=== PATIENT | male | born 1950 | race Caucasian/White ===

== ENCOUNTER 2019-01-09 00:47 | Inpatient (IN) | payer MEDICARE ==
[~2019-01-09] VITALS: Ht 167.6 cm; Wt 111.7 kg
[2019-01-09] MEDS ORDERED: METO100ER PO (01:10)
[2019-01-09] MEDS ORDERED: ZESTORETIC 20-251 EA PO (01:10)
[2019-01-09] MEDS ORDERED: AMLO10 PO (01:10)
[2019-01-09] MEDS ORDERED: Coq-1030 MG PO (01:12)
[2019-01-09 01:35] LABS: BASOPHILS ABSOLUTE AUTO 0.05 K/mm3 (0.00-0.23); BASOPHILS PERCENT AUTO 0 % (0-2); EOSINOPHILS ABSOLUTE AUTO 0.03 K/mm3 (0.00-0.68); EOSINOPHILS PERCENT AUTO 0 % (0-6); Hematocrit 43.6 % (37.0-53.0); Hemoglobin 14.3 g/dL (13.5-17.5); IMMATURE GRAN ABSOLUTE AUTO 0.05 K/mm3 (0.00-0.10); IMMATURE GRAN PERCENT AUTO 0 % (0-1); LYMPHOCYTES ABSOLUTE AUTO 2.77 K/mm3 (0.84-5.20); LYMPHOCYTES PERCENT AUTO 22 % (21-46); MONOCYTES ABSOLUTE AUTO 1.32 K/mm3 (0.16-1.47); MONOCYTES PERCENT AUTO 10 % (4-13); Mean Corpuscular HGB 28.9 pg (26.0-34.0); Mean Corpuscular HGB Conc 32.8 g/dL (31.5-36.5); Mean Corpuscular Volume 88 fL (80-100); NEUTROPHILS ABSOLUTE AUTO 8.44 K/mm3 (1.96-9.15); NEUTROPHILS PERCENT AUTO 67 % (41-73); Platelet Count 216 K/mm3 (150-400); RDW Coefficient Variation 13.9 % (11.7-14.2); RDW Standard Deviation 44.5 fL (35.1-46.3); Red Blood Cell Count 4.94 M/mm3 (4.30-5.90); White Blood Cell Count 12.66 K/mm3 (4.00-11.30)
[2019-01-09 01:55] LABS: Alanine Aminotransfer (ALT/SGP 18 U/L (12-78); Albumin, Blood 3.7 g/dL (3.4-5.0); Alk Phos 58 U/L (50-136); Anion Gap 7 mmol/L (6-16); Aspartate Aminotrans (AST/SGOT 13 U/L (12-37); Blood Urea Nitrogen 21 mg/dL (8-24); Bun/Creatinine Ratio 17.2 (12.0-20.0); CO2, Blood 27 mmol/L (21-32); Calcium, Blood 8.7 mg/dL (8.5-10.1); Chloride, Blood 107 mmol/L (98-108); Creatinine, Blood 1.22 mg/dL (0.60-1.20); Globulin, Blood 3.6 g/dL (2.2-4.0); Glomerular Filtration Rate >60 (60-); Glucose, Blood 142 mg/dL (70-99); Potassium, Blood 3.7 mmol/L (3.5-5.5); Sodium, Blood 141 mmol/L (136-145); Total Protein, Blood 7.3 g/dL (6.4-8.2); Troponin I <0.015 ng/mL (0.000-0.040)
[2019-01-09 02:19] LABS: International Normalized Ratio 0.99; Prothrombin Time Results 10.5 Sec (9.7-11.5)
[2019-01-09 06:08] LABS: CHOL/HDL RATIO 4.8; Cholesterol 216 mg/dL (50-200); HDL Cholesterol 45 mg/dL (>39); LDL/HDL RATIO 3.5; Low Density Lipoprotein Chol 159 mg/dL (0-110); Triglycerides 58 mg/dL (30-160); Very Low Density Lipoprot Chol 11 mg/dL (6-32)
[2019-01-09] MEDS ORDERED: ASPI325 PO (14:27)
[2019-01-09] MEDS ORDERED: FURO20 PO (14:31)
--- NOTE | 2019-01-09 18:40 | NUR ---
ASSUMED CARE OF PT @1600. PT ADMITTED FOR ACS. PT TRANSPORTED TO ROOM VIA GUERNEY BY VAHID HERRING FROM ED. VS STABLE, NSR PER TELE. PT COMPLAINING ABOUT PRESSURE IN CHEST, DENIES RADIATING PAIN OR PAIN ANYWHERE ELSE IN BODY. PT ALERT AND ORIENTED, VERY COOPERATIVE. LUNGS CLEAR TO AUSCULTATION, PT DENIES ISSUES WITH GI//SKIN. PT STATES BEING HOSPITALIZED ONCE IN EARLY 1999' DUE TO AN ARRYTHMIA BUT DENIES ANY OTHER CARDIAC RELATED ISSUE SINCE THEN. PT HAS HEPARIN DRIP RUNNING, STARTESD IN ED. PT HAS BEEN SEEN BY CARDIAC DR IN ED. PATIENT WILL BE NPO AT MIDNIGHT DUE TO POSSIBLE CATHETERIZATION TOMORROW IN AM.
--- NOTE | 2019-01-09 18:47 | NUR ---
END OF SHIFT SUMMARY NO ACUTE CHANGES FROM ASSUMPTION OF CARE. PT CONTINUES TO HAVE HEPARIN DRIP. PT'S FAMILY IN ROOM THROUGHOUT TIME ON FLOOR. VERY COOPERATIVE PT AND FAMILY. PT ATE ALL OF DINNER, TOLD THAT HE WOULD NOT BE ALLOWED TO EAT PAST MIDNIGHT DUE TO POSSIBLE CATHETERIZATION. CHEST PRESSURE STILL PRESENT BUT PT STATES PRESSURE BEING MORE DULL. VS CONTINUE TO BE STABLE.
--- NOTE | 2019-01-09 19:45 | NUR ---
ASSUMED CARE PT RESTING IN ROOM COMFORTABLY. PER DAY SHIFT PT HAS HAD NO ACUTE CHANGES DURING SAY SHIFT. PT HAD SOME CP EARLY IN THE AFTERNOON AFTER ARRIVAL BUT HAS NOT NEEDED ANY FURTHER MEDICATING. PT IS TO BE NPO AFTER MIDNIGHT FOR A POSSIBLE ANGIO IN THE AM. HEPARIN GTT INFUSING IN PT RAC. SEE EMAR. RESP EVEN UNLABORED ON 1L NC. SATS >94%. CALL LIGHT IN REACH. PT DENIES OTHER NEEDS AT THIS TIME.
[2019-01-10 04:14] LABS: BASOPHILS ABSOLUTE AUTO 0.03 K/mm3 (0.00-0.23); BASOPHILS PERCENT AUTO 0 % (0-2); EOSINOPHILS ABSOLUTE AUTO 0.02 K/mm3 (0.00-0.68); EOSINOPHILS PERCENT AUTO 0 % (0-6); Hematocrit 41.3 % (37.0-53.0); Hemoglobin 13.2 g/dL (13.5-17.5); IMMATURE GRAN ABSOLUTE AUTO 0.06 K/mm3 (0.00-0.10); IMMATURE GRAN PERCENT AUTO 1 % (0-1); LYMPHOCYTES ABSOLUTE AUTO 2.38 K/mm3 (0.84-5.20); LYMPHOCYTES PERCENT AUTO 18 % (21-46); MONOCYTES PERCENT AUTO 8 % (4-13); Mean Corpuscular HGB 28.7 pg (26.0-34.0); Mean Corpuscular Volume 90 fL (80-100); Mean Platelet Volume 11.3 fL (9.1-12.4); NEUTROPHILS ABSOLUTE AUTO 9.58 K/mm3 (1.96-9.15); NEUTROPHILS PERCENT AUTO 73 % (41-73); Platelet Count 198 K/mm3 (150-400); RDW Coefficient Variation 13.8 % (11.7-14.2); White Blood Cell Count 13.17 K/mm3 (4.00-11.30)
[2019-01-10 04:34] LABS: Alanine Aminotransfer (ALT/SGP 15 U/L (12-78); Albumin, Blood 3.3 g/dL (3.4-5.0); Albumin/Globulin Ratio 0.9 (0.8-1.8); Alk Phos 52 U/L (50-136); Anion Gap 8 mmol/L (6-16); Aspartate Aminotrans (AST/SGOT 12 U/L (12-37); Blood Urea Nitrogen 22 mg/dL (8-24); Bun/Creatinine Ratio 24.7 (12.0-20.0); CO2, Blood 27 mmol/L (21-32); Calcium, Blood 8.3 mg/dL (8.5-10.1); Chloride, Blood 106 mmol/L (98-108); Creatinine, Blood 0.89 mg/dL (0.60-1.20); Globulin, Blood 3.7 g/dL (2.2-4.0); Glomerular Filtration Rate >60 (60-); Glucose, Blood 132 mg/dL (70-99); Magnesium, Blood 2.3 mg/dL (1.6-2.4); Phosphorus, Blood 3.5 mg/dL (2.5-4.9); Potassium, Blood 3.7 mmol/L (3.5-5.5); Sodium, Blood 141 mmol/L (136-145)
--- NOTE | 2019-01-10 06:23 | NUR ---
SHIFT SUMMARY PT SLEEPING IN ROOM COMFORTABLY. PT HAD N ACUTE CHANGES THROUGHOUT SHIFT. PT DENIED CP ALL NIGHT. REPORTED SOME NEAUSEA AND HEADACHE. PT WAS MEDICATED FOR CONNORS AND PROVIDER WAS CALLED FOR NAUSEA MEDICATION. PT REPORTED FEELING MUCH BETTER AFTER DOSE OF ZOFRAN. SLEPT COMFORTABLY AFTER THAT. CALL LIGHT IN REACH, PT CALLS APPROPRIATELY.
--- NOTE | 2019-01-10 07:49 | NUR ---
NURSING PCU DAYSHIFT: Assumed care of pt at approx 0700. A/O, pleasant, cooperative w/care. Denies any pain/discomfort. Skin is intact w/no noted breakdown. Chronic tremors noted. Tele in place, NSR, no c/o CP/pressure, SBP 150's, trace BLE edema. L/S cta t/o, O2 sat low 90's on RA, c/o occ dry/[employer] cough. Abd SNT, BT+, voiding w/o difficulty per pt. PIV x2, hep gtt infusing at 17u/kg/hr as per pharmacy dosing. No s/s of acute distress. Plan for possible angiogram today, NPO at this time. Pt denies any current needs or questions regarding plan of care. Awaiting rounding from PMD and clinical science liaison, call light in reach, cont to monitor for changes.
--- NOTE | 2019-01-10 16:30 | NUR ---
NURSING PCU DAYSHIFT SUMMARY: Pt notified this RN @ approx 1500 that he had been experiencing chest pressure since 1200. [employer] Warm [employer] notified, new d/o received for SL nitro. Nitro administered as ordered, 2/10 chest pressure was relieved after one dose. VS remained stable t/o the shift. Seen by transportation superintendent and PMD, new d/o received and reviewed. Resting portion of stress test completed though Lexiscan had to be scheduled for next day d/t nitro patch being in place from ER. Plan of care discussed w/pt and family, verbalized understanding, all questions addressed. Pt denies any current needs at this time, call light in reach, cont to monitor until rpt is given to NOC RN.
--- NOTE | 2019-01-10 19:50 | NUR ---
ASSUMED CARE PT RESTING IN ROOM COMFORTABLY. PER DAY SHIFT NO ACUTE CHANGES IN STATUS. PT HAD FIRST PORTION OF CARDIAC STRESS TEST TODAY. SECOND PORTION TO BE DONE IN AM. PT TO BE NPO AFTER 0400. PT HAD COME CP EARLY IN THE DAY. DENIES ANY MORE PAIN AT THIS TIME. DENIES SOB. HEPARIN GTT INFUSING IN PIV. CALL LIGHT IN REACH.
[2019-01-11 05:27] LABS: Mean Platelet Volume 11.6 fL (9.1-12.4); Platelet Count 202 K/mm3 (150-400)
--- NOTE | 2019-01-11 05:50 | NUR ---
SHIFT SUMMARY PT SLEEPING IN ROOM COMFORTABLY. NO ACUTE CHANGES IN STATUS OVERNIGHT. PT HAD NO COMPLAINTS OF CP OR SOB T/O NIGHT. HEPARIN GTT INFUSING IN PIV. DENIES ANY OTHER NEEDS. CALL LIGHT IN REACH.
--- NOTE | 2019-01-11 07:32 | NUR ---
NURSING PCU DAYSHIFT: Assumed care of pt at approx 0700. A/O, pleasant, cooperative w/care. Denies any pain/discomfort at this time. Chronic UE tremors noted, ambulates independently and w/o difficulty. Skin is intact w/no breakdown noted. Tele in place, NSR, no c/o CP/pressure, hypertensive prior to a.m. meds, trace BLE edema. L/S cta t/o, O2 sat mid 90's on RA, denies dyspnea, occ cough producing clear/stringy sputum. Abd SNT, BT+, voiding w/o difficulty. PIV x2, hep gtt infusing as per pharmacy dosing. Pt denies any current needs or questions regarding plan of care. HC currently at bedside for 2nd portion of stress test. Call light in reach and pt is able to use w/o difficulty. Awaiting rounding from PMD and strategic business development, cont to monitor for any changes.
--- NOTE | 2019-01-11 16:48 | NUR ---
NURSING PCU DAYSHIFT SUMMARY: Blood pressure has improved t/o the shift and maintained 120's through the afternoon. Seen by PMD and business analyst sales operations, new d/o received. Cardiac angiogram explained to pt by business analyst sales operations, consent form signed and placed on from of chart for possible cath 01/12. Pt to be NPO after 2400. Family at bedside this afternoon, plan of care discussed and questions answered. Pt denies any questions/needs. Hep gtt continues to infuse as per pharmacy dosing. Call light in reach, cont to monitor until rpt is given to NOC RN.
--- NOTE | 2019-01-11 17:25 | NUR ---
Pt gave student permission to provide care. NARINDER
[2019-01-12 04:11] LABS: BASOPHILS ABSOLUTE AUTO 0.05 K/mm3 (0.00-0.23); BASOPHILS PERCENT AUTO 1 % (0-2); EOSINOPHILS ABSOLUTE AUTO 0.16 K/mm3 (0.00-0.68); EOSINOPHILS PERCENT AUTO 2 % (0-6); Hematocrit 40.3 % (37.0-53.0); Hemoglobin 13.2 g/dL (13.5-17.5); IMMATURE GRAN ABSOLUTE AUTO 0.03 K/mm3 (0.00-0.10); IMMATURE GRAN PERCENT AUTO 0 % (0-1); LYMPHOCYTES ABSOLUTE AUTO 3.14 K/mm3 (0.84-5.20); LYMPHOCYTES PERCENT AUTO 34 % (21-46); MONOCYTES ABSOLUTE AUTO 1.06 K/mm3 (0.16-1.47); MONOCYTES PERCENT AUTO 12 % (4-13); Mean Corpuscular HGB 28.6 pg (26.0-34.0); Mean Corpuscular HGB Conc 32.8 g/dL (31.5-36.5); Mean Corpuscular Volume 87 fL (80-100); Mean Platelet Volume 11.4 fL (9.1-12.4); NEUTROPHILS ABSOLUTE AUTO 4.79 K/mm3 (1.96-9.15); NEUTROPHILS PERCENT AUTO 52 % (41-73); Platelet Count 198 K/mm3 (150-400); RDW Coefficient Variation 13.5 % (11.7-14.2); Red Blood Cell Count 4.61 M/mm3 (4.30-5.90); White Blood Cell Count 9.23 K/mm3 (4.00-11.30)
[2019-01-12 04:28] LABS: Anion Gap 7 mmol/L (6-16); Blood Urea Nitrogen 17 mg/dL (8-24); Bun/Creatinine Ratio 17.7 (12.0-20.0); CO2, Blood 27 mmol/L (21-32); Calcium, Blood 8.4 mg/dL (8.5-10.1); Chloride, Blood 108 mmol/L (98-108); Creatinine, Blood 0.96 mg/dL (0.60-1.20); Glomerular Filtration Rate >60 (60-); Glucose, Blood 101 mg/dL (70-99); Potassium, Blood 3.6 mmol/L (3.5-5.5); Sodium, Blood 142 mmol/L (136-145)
--- NOTE | 2019-01-12 05:08 | NUR ---
SHIFT SUMMARY- PT HAS REMAINED AOX4 THROUGHOUT SHIFT. VSS. PLEASANT AND COOPERATIVE WITH CARE. PT CONTINUES TO AMBULATE INDEPENDENTLY IN THE ROOM WITHOUT DIFFICULTY. PT HAS DENIED CHEST PAIN THROUGHOUT SHIFT. ALSO DENIED DYSPNEA OR NAUSEA. HEPARIN DRIP TITRATED PER LABS AND PHARMACY. PT HAS REMAINED NPO SINCE MIDNIGHT FOR UPCOMING ANGIO THIS AM. NO OTHER CHANGES FROM INITIAL ASSESSMENT. WILL CONTINUE TO MONITOR AND REPORT TO ONCOMING SHIFT RN. BED IN LOW POSITION, CALL LIGHT IN REACH.
--- NOTE | 2019-01-12 12:02 | NUR ---
Spiritual care/Advance Directive education visit conducted. Patient was lying in bed and alert when I entered the room. I introduced myself and patient welcomed me to stay. Patient explained about his upcoming procedure and and about his anxiety connected to it. I listened empathically, normalized his experience and provided prayer. Patient responded well to all interventions and showed signs of reduced stress. I also discussed with patient the importance and process of the advance directive. Patient asked questions and demonstrated an understanding of of the material. Patient said that he would take it home and go over it with his .
--- NOTE | 2019-01-12 12:34 | NUR ---
PT UP IN CHAIR. PT DENIES CHEST PAIN THIS MORNING. PT STATES MILD ANXIETY ABOUT ANGIOGRAM. DISCUSSED CONCERNS WITH PATIENT.
--- NOTE | 2019-01-12 14:07 | NUR ---
Permission to access Patient gave this student nurse permission to access chart.
--- NOTE | 2019-01-12 16:00 | NUR ---
the pt was taken to the [facility] for angiogram.
--- NOTE | 2019-01-12 19:00 | NUR ---
ASSUMED CARE PT CARE ASSUMED AT APPROXIMATELY 1900. PT RESTING COMFORTABLY AT THIS TIME WITH VISITORS AT BEDSIDE.VSS. R RADIAL PINPOINT INCISION NOTED WITH TR BAND CURRENTLY INFLATED WITH 12 ML OF AIR AND ARM BOARD IN PLACE. NO BRUISING, SWELLING OR HEMATOMA NOTED TO SITE. SMALL AMOUNT OF DRY, RED DRAINAGE NOTED UNDER TR BAND. PT DENIES TENDERNESS TO RADIAL SITE. PT DENIES CHEST PAIN OR SHORTNESS OF BREATH AT THIS TIME. WILL CONTINUE MONITORING.
--- NOTE | 2019-01-12 19:25 | NUR ---
Received the patient from the heart center this evening, and TR band was in place on the right wrist. Site has remained without bleeding, bruising, swelling, or evidence of hematoma. The pt has denied any numbness, tingling or pain in the right arm or right hand. Blood pressure was elevated during the initial recovery time, but has come down at the time of shift change and bedside report given to Malaika Zuleta RN. The pt has denied any pain or discomfort at all today. His family is at the bedside and he expressed no needs at this time.
--- NOTE | 2019-01-12 20:00 | NUR ---
tr site 2 cc air removed from tr band. No bleeding from site. no bruising, hematoma, or swelling noted. Pt denies pain on palpation. circulation wnl. will continue to monitor for changes.
--- NOTE | 2019-01-13 01:00 | NUR ---
tr band removal tr band fully deflated for one hour and removed from wrist at this time. clear dressing placed. no bruising, hematom, swelling or bleeding noted from or around site. pt denies pain on palpation. circulation in tact and wnl. arm board replaced and pt educated on restrictions of wrist- demonstrated understanding. will continue to monitor. bed in low position, call light in reach.
--- NOTE | 2019-01-13 05:17 | NUR ---
SHIFT SUMMARY- PT HAS REMAINED AOX4 THROUGHOUT SHIFT. VSS. PLEASANT AND COOPERATIVE WITH CARE. PT CONTINUES TO AMBULATE INDEPENDENTLY TO RESTROOM WITHOUT DIFFICULTY. PT DENIES CHEST PAIN OR DYSPNEA ON EXERTION THROUGHOUT THE NIGHT. R RADIAL SITE REMAINS UNCHANGED AND WITHIN NORMAL LIMITS. PT DENIES PAIN ON PALPATION, CIRCULATION IN TACT. ARM BOARD REMAINS IN PLACE AND PT PROVIDED EDUCATION ON MINIMIZATION OF R WRIST USAGE. NO OTHER CHANGES NOTED THROUGHOUT THE NIGHT. WILL CONTINUE TO MONITOR AND REPORT TO ONCOMING SHIFT RN. BED IN LOW POSITION, CALL LIGHT IN REACH.
[2019-01-13 05:35] LABS: Mean Platelet Volume 11.5 fL (9.1-12.4); Platelet Count 193 K/mm3 (150-400)
--- NOTE | 2019-01-13 08:00 | NUR ---
pt laying in bed awake a/ox3, pleasant and cooperative with care, follows commands well, denies pain, lungs are clear t/o, resp even and unlabored, no cough noted, hrr, tele in place running sr per monitor, see strip, no edema noted, ppp+2, cap refill <3sec, vs stable, afebrile, iv site is clear and patent, btx4, abd flat soft nontender, voids without diff, skin c/w/d, maew, caesar, up ad otilia in room gait noted to be steady, denies any pain, had a good night, call light in reach.
[2019-01-13] MEDS ORDERED: ATOR40TA PO (12:34)
[2019-01-13] MEDS ORDERED: CARV25 PO (12:35)
[2019-01-13] MEDS ORDERED: CLOP75 PO (12:36)
[2019-01-13] MEDS ORDERED: Isosorbide Mono30 MG PO (12:38)
--- NOTE | 2019-01-13 13:05 | NUR ---
pt has been discharged to home, went over instructions with him, he verbalized understanding. iv x2 removed intact. preprinted tr band instructions given and went over with pt. new meds faxed to [facility], called to verify they recieved it, they did. pt has all of his belongings, will leave as soon as ride arrives. call light in reach.
--- NOTE | 2019-01-13 13:15 | NUR ---
pt left via wheelchair with escort in attendence, has all his belongings, here to transport him home.
== END 2019-01-13 13:21 | disposition home or self-care (01) | DRG 287 ==
LOC: ER 00:47 → ERHOLD 05:11 → PCU 05:11
PROVIDERS: Emergency Medicine; Hospitalist; ADMIT Hospitalist
PROC: B2111ZZ Fluoroscopy of Multiple Coronary Arteries using Low Osmolar Contrast (ICD-10-PCS; principal; 2019-01-12)
PROC: 4A033BC Measurement of Arterial Pressure, Coronary, Percutaneous Approach (ICD-10-PCS; 2019-01-12)
DX: I20.0 Unstable angina (principal); Z87.891 Personal history of nicotine dependence; I10 Essential (primary) hypertension; E78.5 Hyperlipidemia, unspecified; E66.9 Obesity, unspecified; Z68.38 Body mass index [BMI] 38.0-38.9, adult; K44.9 Diaphragmatic hernia without obstruction or gangrene; K76.0 Fatty (change of) liver, not elsewhere classified; R73.03 Prediabetes; Z79.82 Long term (current) use of aspirin
CPT/HCPCS: 36415; 71260; 78452; 80048; 80053; 80061; 83036; 83735; 83880; 84100; 84484; 85025; 85049; 85347; 85610; 85730; 93005; 93010; 93017; 93306; 93454; 93571; 96365-59; 96366-59; 96375-59; 96376-59; 99152; 99153; 99285-25; A9500; C1769; C1887; C1894; J0280; J0706; J1644; J2250; J2270; J2405; J2785; J3010; J7030; Q9967

== ENCOUNTER 2022-04-30 14:06 | Emergency (ER) | payer MEDICARE ==
[~2022-04-30] VITALS: Ht 167.6 cm; Wt 117.9 kg
[~2022-04-30 14:06] MED LIST: AMLO10 PO; ASPI325 PO; ATOR40TA PO; CARV25 PO; CLOP75 PO; Coq-1030 MG PO; FENO54 PO; FURO20 PO; Isosorbide Mono30 MG PO; METO100ER PO; NYSTRIT TOP; ZESTORETIC 20-251 EA PO
[2022-04-30 16:38] LABS: BASOPHILS ABSOLUTE AUTO 0.06 K/mm3 (0.00-0.23); BASOPHILS PERCENT AUTO 1 % (0-2); EOSINOPHILS ABSOLUTE AUTO 0.02 K/mm3 (0.00-0.68); EOSINOPHILS PERCENT AUTO 0 % (0-6); Hematocrit 45.4 % (37.0-53.0); Hemoglobin 14.9 g/dL (13.5-17.5); IMMATURE GRAN ABSOLUTE AUTO 0.05 K/mm3 (0.00-0.10); IMMATURE GRAN PERCENT AUTO 0 % (0-1); LYMPHOCYTES ABSOLUTE AUTO 2.15 K/mm3 (0.84-5.20); LYMPHOCYTES PERCENT AUTO 16 % (21-46); MONOCYTES ABSOLUTE AUTO 1.04 K/mm3 (0.16-1.47); MONOCYTES PERCENT AUTO 8 % (4-13); Mean Corpuscular HGB 28.2 pg (26.0-34.0); Mean Corpuscular HGB Conc 32.8 g/dL (31.5-36.5); Mean Corpuscular Volume 86 fL (80-100); Mean Platelet Volume 11.4 fL (9.1-12.4); NEUTROPHILS ABSOLUTE AUTO 9.83 K/mm3 (1.96-9.15); NEUTROPHILS PERCENT AUTO 75 % (41-73); Platelet Count 204 K/mm3 (150-400); RDW Coefficient Variation 13.4 % (11.7-14.2); RDW Standard Deviation 41.9 fL (35.1-46.3); Red Blood Cell Count 5.28 M/mm3 (4.30-5.90); White Blood Cell Count 13.15 K/mm3 (4.00-11.30)
[2022-04-30 16:57] LABS: Albumin, Blood 3.8 g/dL (3.4-5.0); Bun/Creatinine Ratio 15.2 (12.0-20.0); Calcium, Blood 9.2 mg/dL (8.5-10.1); Creatinine, Blood 1.71 mg/dL (0.60-1.20); Globulin, Blood 3.9 g/dL (2.2-4.0); Total Protein, Blood 7.7 g/dL (6.4-8.2)
[2022-04-30 19:06] LABS: Source, Urine Clean Catch
[2022-04-30 19:18] LABS: Appearance, Urine Hazy (Clear); Bilirubin, Urine Neg (Neg); Blood, Urine 5+ (Neg); Color, Urine Yellow (P-Yellow); Glucose Qualitative, Urine Neg (Neg); Ketones, Urine 2+ (Neg); Leukocyte Esterase, Urine Neg (Neg); Nitrite, Urine Neg (Neg); Protein, Urine 2+ (Neg); Specific Gravity, Urine 1.025 (1.003-1.022); Urobilinogen, Urine NORM (Normal)
[2022-04-30 19:30] LABS: Red Blood Cells, Urine TNTC /hpf (0-2)
[2022-04-30 19:31] LABS: Amorphous Light (0-Heavy); Bacteria Mod /hpf; Mucus Mod (0-Heavy); Squamous Epithelial Cells Rare /hpf (Few)
[2022-04-30] MEDS ORDERED: Flomax0.4 MG PO (20:05)
[2022-04-30] MEDS ORDERED: Miralax17 GM PO (20:05)
[2022-04-30] MEDS ORDERED: Percocet 5-3251 EACH PO (20:05)
[2022-04-30] MEDS ORDERED: ONDA4ODT SL (20:05)
== END 2022-04-30 20:27 | disposition home or self-care (01) ==
LOC: ER 14:06
PROVIDERS: Physician Assistant
DX: N13.2 Hydronephrosis with renal and ureteral calculous obstruction (principal); N17.9 Acute kidney failure, unspecified; I10 Essential (primary) hypertension; E78.5 Hyperlipidemia, unspecified; Z79.82 Long term (current) use of aspirin; Z79.899 Other long term (current) drug therapy; Z88.8 Allergy status to other drugs, medicaments and biological substances; Z87.891 Personal history of nicotine dependence
CPT/HCPCS: 36415; 74176; 80053; 81001; 83690; 85025; A9270; J2405; J7030

== ENCOUNTER 2023-12-07 09:25 | Observation (INO) | payer MEDICARE ==
[~2023-12-07] VITALS: Ht 172.7 cm; Wt 117.2 kg
[~2023-12-07 09:25] MED LIST changes: +Flomax0.4 MG PO; +Miralax17 GM PO; +ONDA4ODT SL; +Percocet 5-3251 EACH PO
[2023-12-07 09:49] LABS: BASOPHILS ABSOLUTE AUTO 0.05 K/mm3 (0.00-0.23); BASOPHILS PERCENT AUTO 1 % (0-2); EOSINOPHILS ABSOLUTE AUTO 0.11 K/mm3 (0.00-0.68); EOSINOPHILS PERCENT AUTO 1 % (0-6); Hematocrit 43.2 % (37.0-53.0); Hemoglobin 14.5 g/dL (13.5-17.5); IMMATURE GRAN ABSOLUTE AUTO 0.03 K/mm3 (0.00-0.10); IMMATURE GRAN PERCENT AUTO 0 % (0-1); LYMPHOCYTES ABSOLUTE AUTO 2.35 K/mm3 (0.84-5.20); LYMPHOCYTES PERCENT AUTO 29 % (21-46); MONOCYTES ABSOLUTE AUTO 0.45 K/mm3 (0.16-1.47); MONOCYTES PERCENT AUTO 6 % (4-13); Mean Corpuscular HGB Conc 33.6 g/dL (31.5-36.5); Mean Corpuscular Volume 86 fL (80-100); Mean Platelet Volume 10.8 fL (9.1-12.4); NEUTROPHILS ABSOLUTE AUTO 5.06 K/mm3 (1.96-9.15); NEUTROPHILS PERCENT AUTO 63 % (41-73); Platelet Count 189 K/mm3 (150-400); RDW Coefficient Variation 13.3 % (11.7-14.2); RDW Standard Deviation 41.5 fL (35.1-46.3); White Blood Cell Count 8.05 K/mm3 (4.00-11.30)
[2023-12-07 10:08] LABS: Albumin, Blood 3.5 g/dL (3.4-5.0); Albumin/Globulin Ratio 0.9 (0.8-1.8); Bilirubin, Total 0.6 mg/dL (0.1-1.0); Calcium, Blood 8.7 mg/dL (8.5-10.1); Creatinine, Blood 0.94 mg/dL (0.60-1.20); Globulin, Blood 3.7 g/dL (2.2-4.0); Potassium, Blood 3.8 mmol/L (3.5-5.5); Total Protein, Blood 7.2 g/dL (6.4-8.2)
[2023-12-07] MEDS ORDERED: Acetaminophen 325 MG TABLET PO PRN (11:40)
[2023-12-07] MEDS ORDERED: Nitroglycerin 0.4 MG SUBL SL PRN (11:40)
[2023-12-07] MEDS ORDERED: FLU VACC QS2023-24(6MOS UP)/PF 60 MCG/0.5 ML SYRINGE IM SCH (11:40)
[2023-12-07 13:24] VITALS: BP 180/90
[2023-12-07] MEDS ORDERED: AMLO5 PO (14:24)
[2023-12-07] MEDS ORDERED: ATOR10 PO (14:27)
[2023-12-07] MEDS ORDERED: LOSA25 PO (14:28)
[2023-12-07 15:34] LABS: Anti-Xa UFH, PHA Monitoring <0.10 IU/mL; International Normalized Ratio 1.01; Prothrombin Time Results 10.6 Sec (9.7-11.5)
[2023-12-07] MEDS ORDERED: Dose Adjust by Pharmacy XX STA (15:41)
[2023-12-07] MEDS ORDERED: Heparin Sodium,Porcine/0.5 NS 500 ML IV SCH (15:45)
[2023-12-07 16:13] VITALS: BP 153/84
--- NOTE | 2023-12-07 18:32 | NUR ---
PT ADMIT FROM ER C/P OF CHEST PAIN. ON ADMISSION PT DENIES ANY CHEST PAIN OR PRESSURE. TROP ELEVATED. DR. NARANJO AWARE. WILL ADD TROP DRAW TO MORNING LABS TOMORROW. ALERT AND ORIENTED X4. ABLE TO MAKE NEEDS KNOWN. HEPARIN DRIP CONTINUES. PT HAS BEEN UP TO BATHROOM INDEPENDENTLY WITHOUT NEED FOR ASSISTANCE. POLITELY DECLINES BEDREST WELL RAJ AREA SKIN CHECK. PT BLE +1 NON PITTING EDEMA. ELEVATED. EDUCATION PROVIDED ON LOW SODIUM DIET. PT REPORTS EATING MOSTLY CANNED FOOD. CONTINUED EDUCATION ON HEALTHY LIFESTYLE CHOICES APPRECIATED. DAUGHTER AT BEDSIDE CONCERNED FOR FATHER AND DISCHARGE PLANNING. WILL CONTINUE TO DISCUSS PLANS WITH FAMILY AND PT.
[2023-12-07] MEDS ORDERED: Aspirin 81 MG Chew PO SCH (19:00)
[2023-12-07 19:17] VITALS: BP 162/93
[2023-12-07] MEDS ORDERED: Carvedilol 25 MG Tab PO SCH (21:00)
--- NOTE | 2023-12-08 04:05 | NUR ---
1900: ASSUMED CARE OF PT, BEDSIDE REPORT RECEIVED FROM [facility]. PT IS SITTING UP AT THE SIDE OF THE BED. A/OX4 INDEPENDENT IN THE ROOM. HEPARIN DRIP RUNNING ORDERED TO RIGHT WRIST PIV. LAB DRAW WITHIN RANGE, NO CHANGES AT 2230. PT SLEEPING WELL DURING THE NIGHT, REMAINS IN SINUS RHYTHM. NO COMPLAINTS OF C/P, PRESSURE, SOB, OR DIZZINESS DURING THE SHIFT. NPO AT MIDNIGHT EXCEPT WATER. SAFETY MEASURES TAKEN, ALL NEEDS ADDRESSED.
[2023-12-08 04:51] VITALS: BP 157/84
[2023-12-08 05:20] LABS: Bun/Creatinine Ratio 21.3 (12.0-20.0); Calcium, Blood 8.7 mg/dL (8.5-10.1); Creatinine, Blood 0.99 mg/dL (0.60-1.20); Potassium, Blood 3.9 mmol/L (3.5-5.5)
[2023-12-08 07:27] VITALS: BP 169/86
[2023-12-08] MEDS ORDERED: Aminophylline 250MG / 10ML 10 ML Vial ONE (08:13)
[2023-12-08] MEDS ORDERED: Regadenoson 0.4 MG/5 ML SYRINGE ONE (08:13)
[2023-12-08] MEDS ORDERED: Aspirin 325 MG Tab PO SCH (09:00)
[2023-12-08] MEDS ORDERED: Polyethylene Glycol 3350 17 gm PO SCH (09:00)
[2023-12-08] MEDS ORDERED: Heparin Sodium,Porcine 5,000 UNIT/0.5 ML SDV SC SCH (09:00)
[2023-12-08] MEDS ORDERED: AmLODIPine Besylate 5 MG Tab PO SCH (09:00)
[2023-12-08] MEDS ORDERED: Losartan Potassium 50 MG Tab PO SCH (11:00)
[2023-12-08 11:55] VITALS: BP 144/94
[2023-12-08] MEDS ORDERED: Isosorbide Mono30 MG PO (14:49)
[2023-12-08] MEDS ORDERED: NITR.4SL SL (14:49)
--- NOTE | 2023-12-08 16:18 | NUR ---
PT DISCHARGED HOME. DISCUSSED DISCHARGE INSTRUCTIONS WITH PT. CALLED PT ON CELL PHONE TO INFORM HIM OF CHANGE IN MEDICATION DOSAGE DISCHARGE MED REC SHOWS. NO QUESTIONS OR CONCERNS AT THIS TIME.
== END 2023-12-08 15:25 | disposition home or self-care (01) ==
LOC: ER 09:25 → MEDS 09:26
PROVIDERS: Emergency Medicine; ADMIT Internal Medicine
DX: I21.4 Non-ST elevation (NSTEMI) myocardial infarction (principal); I25.10 Atherosclerotic heart disease of native coronary artery without angina pectoris; I10 Essential (primary) hypertension; E78.5 Hyperlipidemia, unspecified; E11.9 Type 2 diabetes mellitus without complications; E66.9 Obesity, unspecified; Z87.891 Personal history of nicotine dependence; Z88.8 Allergy status to other drugs, medicaments and biological substances; Z79.82 Long term (current) use of aspirin; Z79.899 Other long term (current) drug therapy
CPT/HCPCS: 36415; 71045; 78452; 80048; 80053; 83880; 84484; 85025; 85520; 85610; 85730; 93005; 93010; 93017; 93306; 96365; 96366; 99285-25; A9270; A9500; G0378; J0280; J1644; J2785

== ENCOUNTER 2024-01-02 06:43 | Day surgery (SDC) | payer MEDICARE ==
[2024-01-02] VITALS (10 sets, daily range): BP systolic 125–177; BP diastolic 70–105
[~2024-01-02] VITALS: Ht 170.2 cm; Wt 117.0 kg
[~2024-01-02 06:43] MED LIST changes: +AMLO5 PO; +ATOR10 PO; +LOSA25 PO; +NITR.4SL SL; +RANEXA1000 M1 PO
[2024-01-02] MEDS ORDERED: Heparin Sodium 1000 Units/ML 10ML MDV ONE ×2 (06:44→07:22)
[2024-01-02] MEDS ORDERED: NS 1,000 ML IV ONE ×2 (06:44→07:22)
[2024-01-02] MEDS ORDERED: NS 250 ML IV ONE (07:22)
[2024-01-02] MEDS ORDERED: Verapamil HCL 2.5 MG/ML 2ML Injection ONE (07:22)
[2024-01-02] MEDS ORDERED: Midazolam HCl 1MG / ML 2ML Vial ONE (07:23)
[2024-01-02] MEDS ORDERED: FentaNYL Citrate 50 MCG/ML 2 ML Injection ONE (07:23)
--- NOTE | 2024-01-02 09:15 | NUR ---
pt arrives back to recovery room up in recliner, alert and oriented. pt. vss upon arrival back to recover room. pt had right radial attempt, site wnl at this time. pt. has fluids continued per dr order x 1 liter. pt. has left radial TR band with 11cc of air, with secondary tr band above with 12 cc of air due to hematoma. arm above tr bands now soft, no hematoma, hand pink and warm with rapid cap refill <3 seconds. pt. denies any numbness or tingling. pt. provided with coffee and breakfast upon arrival back to recovery room. call light in reach.
--- NOTE | 2024-01-02 10:19 | NUR ---
PT UP TO USE BATHROOM WITH OUT DIFFICULTY. REMINDER TO NOT USE LEFT ARM. PT. SITES REMAIN UNCHANGED FROM PREVIOUS ASSESSMENT.
--- NOTE | 2024-01-02 11:20 | NUR ---
TR BAND DEFLATION PER PROTOCOL WITH BOTH TR BANDS TO RIGHT RADIAL. NO OOZING AT THIS TIME. BOTH BANDS FULLY DEFLATED AND IN PLACE. PT VSS REMAIN STABLE. AWAITING DAUGHTER TO REVIEW DISCHARGE INSTRUTIONS.
--- NOTE | 2024-01-02 11:30 | NUR ---
PT DAUGHTER TO BEDSIDE, DISCHARGE INSTURCTIONS REVIEWED WITH BOTH PATIENT AND DAUGHTER, NO FUTHER QUESTIONS FROM PATIENT. PT ABLE TO GET SELF DRESSED WITH OUT DIFFICULTY. BOTH TR BANDS REMOVED PRIOR TO DC SMALL HEMATOMA SIZE OF QUARTER ABOVE ACCESS SITE, THIS WAS UNDER SECOND TR BAND. NO SWELLING. NO OOZING FROM SITE. BANDAGE PLACED OVER ACCESS SITE. PT. ATTEMPTED ACCESS SITES TO RIGHT RADIAL REMAIN UNCHANGED FROM PREVIOUS ASSESSMENT. PT. VSS UPON DISCHARGE. IV REMOVED CATHETER INTACT. PT DAUGHTER TO DRIVE PT HOME, TAKEN TO EXIT VIA DISCHARGE VOLUNTEER.
== END 2024-01-02 12:00 | disposition home or self-care (01) ==
LOC: MHTC 06:43
PROC: B2041ZZ Plain Radiography of Right Heart using Low Osmolar Contrast (ICD-10-PCS; principal; 2024-01-02)
PROC: B2051ZZ Plain Radiography of Left Heart using Low Osmolar Contrast (ICD-10-PCS; principal; 2024-01-02)
DX: R07.89 Other chest pain (principal); I25.10 Atherosclerotic heart disease of native coronary artery without angina pectoris; I25.2 Old myocardial infarction; I10 Essential (primary) hypertension; E78.5 Hyperlipidemia, unspecified; E66.01 Morbid (severe) obesity due to excess calories; Z88.8 Allergy status to other drugs, medicaments and biological substances; Z79.899 Other long term (current) drug therapy; Z79.82 Long term (current) use of aspirin
CPT/HCPCS: 76937; 93458; 99152; 99153; C1769; C1887; C1894; J1644; J2250; J3010; J7030; J7050; Q9967

== ENCOUNTER → 2025-10-11 | Outpatient (CLI) | payer MEDICARE ==
[2025-10-11 20:20] LABS: Bilirubin, Urine Neg (Neg); Color, Urine Yellow (P-Yellow); Glucose Qualitative, Urine Neg (Neg); Ketones, Urine Neg (Neg); Leukocyte Esterase, Urine 2+ (Neg); Protein, Urine 1+ (Neg); Specific Gravity, Urine 1.015 (1.003-1.022); Urobilinogen, Urine NORM (Normal)
[2025-10-11 20:22] LABS: Red Blood Cells, Urine 0-2 /hpf (0-2); White Blood Cells, Urine 50-100 /hpf (0-5)
== END ==
LOC: LAB SHORT 18:55 → LAB 18:55
PROVIDERS: Nurse Practitioner Family
DX: R30.0 Dysuria (principal)
CPT/HCPCS: 81001; 87077; 87086; 87186